=== PATIENT | female | born 1945 | race Caucasian/White ===

== ENCOUNTER → 2016-05-14 | Outpatient (CLI) | payer MEDICARE ==
--- NOTE | 2016-05-15 07:53 | MM ---
Reason for exam: screening (asymptomatic). Last mammogram was performed 1 year and 1 month ago. History: Patient is postmenopausal, has history of other cancer at age 62, and has history of endometrial cancer at age 54. Family history of breast cancer in maternal aunt. Benign cyst aspiration of the left breast. Physical Findings: A clinical breast exam by your physician is recommended on an annual basis and results should be correlated with mammographic findings. MG 3D Screening Mammo W/Cad Bilateral CC and MLO view(s) were taken. Prior study comparison: April 08, 2015, bilateral MG 3d screening mammo w/cad. January 29, 2014, bilateral MG screening mammo w CAD. There are scattered fibroglandular densities. There is no discrete abnormality. No significant changes when compared with prior studies. ASSESSMENT: Negative, BI-RAD 1 RECOMMENDATION: Routine screening mammogram of both breasts in 1 year.
== END | disposition home or self-care (01) ==
LOC: RADMAMWWP 11:29
PROVIDERS: ATTEND Obstetrics & Gynecology
DX: Z12.31 Encounter for screening mammogram for malignant neoplasm of breast (principal); Z80.3 Family history of malignant neoplasm of breast
CPT/HCPCS: 77063; G0202

== ENCOUNTER → 2017-02-04 | Outpatient (CLI) | payer MEDICARE ==
--- NOTE | 2017-02-04 11:10 | US ---
EXAMINATION TYPE: US gallbladder DATE OF EXAM: 02/04/2017 COMPARISON: NONE CLINICAL HISTORY: 71-year-old female R10.11 RT UPPER QUADRANT PAIN. Occasional RUQ pain x 1 year, jessica medrano, [employer] SAL[employer] ASSIST[employer] NOTES: obese patient FINDINGS: EXAM MEASUREMENTS: Liver Length: 13.6 cm Gallbladder Wall: 0.2 cm CBD: 6.1 mm Right Kidney: 10.0 x 4.7 x 4.7 cm Pancreas: visualized portions wnl, head and tail limited by overlying midline bowel gas Liver: somewhat heterogeneous appearance which may be on a technical basis. There is a 2.2 cm cyst i n the right lobe Gallbladder: wnl Evidence for sonographic De Leon's sign: no CBD: borderline dilated. Right Kidney: No hydronephrosis IMPRESSION: 1. Slight heterogeneity of the liver may be on a technical basis. Correlate to exclude nonspecific he patocellular disease. 2. Borderline diameter of the bile duct still falls within normal limits for patient's age. 3. No cholelithiasis or evidence for acute cholecystitis.
== END ==
LOC: RADUSWWP 08:52
PROVIDERS: ATTEND Family Medicine
DX: R10.11 Right upper quadrant pain (principal)
CPT/HCPCS: 76705

== ENCOUNTER 2017-05-15 19:03 | Emergency (ER) | payer OTHER, MEDICARE ==
[2017-05-15 19:16] VITALS: TEMP 98
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
[2017-05-15 21:50] VITALS: RESP 18
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
[2017-05-15 23:07] VITALS: BP 149/68; PULSE 74
== END 2017-05-15 23:08 | disposition home or self-care (01) ==
LOC: EC 19:03
DX: S16.1XXA Strain of muscle, fascia and tendon at neck level, initial encounter (principal); I10 Essential (primary) hypertension; M43.12 Spondylolisthesis, cervical region; G31.89 Other specified degenerative diseases of nervous system; G47.30 Sleep apnea, unspecified; Z99.89 Dependence on other enabling machines and devices; Z85.850 Personal history of malignant neoplasm of thyroid; Z85.42 Personal history of malignant neoplasm of other parts of uterus; Z86.73 Personal history of transient ischemic attack (TIA), and cerebral infarction without residual deficits; Z79.82 Long term (current) use of aspirin; Z79.899 Other long term (current) drug therapy; Z88.0 Allergy status to penicillin; Z88.6 Allergy status to analgesic agent; Z88.5 Allergy status to narcotic agent; Z88.8 Allergy status to other drugs, medicaments and biological substances; Z88.1 Allergy status to other antibiotic agents; Z88.2 Allergy status to sulfonamides; Z98.890 Other specified postprocedural states; V43.92XA Unspecified car occupant injured in collision with other type car in traffic accident, initial encounter; Y92.410 Unspecified street and highway as the place of occurrence of the external cause
CPT/HCPCS: 72050; 72125; 99284

== ENCOUNTER → 2017-09-28 | Outpatient (CLI) | payer MEDICARE ==
--- NOTE | 2017-09-30 10:25 | MM ---
Reason for exam: screening (asymptomatic). Last mammogram was performed 1 year and 4 months ago. History: Patient is postmenopausal, has history of other cancer at age 62, and has history of endometrial cancer at age 54. Family history of breast cancer in maternal aunt. Benign cyst aspiration of the left breast. Physical Findings: A clinical breast exam by your physician is recommended on an annual basis and results should be correlated with mammographic findings. MG 3D Screening Mammo W/Cad Bilateral CC and MLO view(s) were taken. Prior study comparison: May 14, 2016, bilateral MG 3d screening mammo w/cad. April 08, 2015, bilateral MG 3d screening mammo w/cad. There are scattered fibroglandular densities. There is chronic nodularity in the left breast. Axillary tail lymph node. No significant changes when compared with prior studies. ASSESSMENT: Negative, BI-RAD 1 RECOMMENDATION: Routine screening mammogram of both breasts in 1 year.
== END | disposition home or self-care (01) ==
LOC: RADMAMWWP 16:47
PROVIDERS: ATTEND Obstetrics & Gynecology
DX: Z12.31 Encounter for screening mammogram for malignant neoplasm of breast (principal)
CPT/HCPCS: 77063; 77067

== ENCOUNTER 2017-12-18 13:44 | Emergency (ER) | payer MEDICARE ==
[2017-12-18 14:02] VITALS: RESP 18; TEMP 97.9
--- NOTE | 2017-12-18 14:36 | ED ---
General Adult HPI - General Chief complaint: Neck Pain/Injury Stated complaint: neck/jaw pain Time Seen by Provider: 12/18/17 14:15 Source: patient, RN notes reviewed, old records reviewed Mode of arrival: ambulatory Limitations: no limitations - History of Present Illness Initial comments: 72-year-old female history of A. fib, and remote history of TIA presenting for evaluation of left-sided neck pain and jaw pain. Patient has had symptoms for several weeks. She developed bilateral jaw pain proximally 3 hours prior to arrival which is similar to the pain she has been experiencing over the past several weeks. She has no known history of CAD, she was concerned that this may be cardiac related. No dyspnea, no chest pain, no abdominal pain. No focal numbness or weakness. - Related Data Home Medications Medication Instructions Recorded Confirmed Levothyroxine Sodium [Synthroid] 137 mcg PO DAILY 08/20/13 12/18/17 Aspirin 325 mg PO DAILY 09/13/14 12/18/17 Cholecalciferol [Vitamin D3] 1,000 unit PO HS 09/13/14 12/18/17 Multivitamins, Thera [Theragran] 1 each PO HS 09/13/14 12/18/17 Ramipril 10 mg PO DAILY 09/13/14 12/18/17 Acetaminophen Tab [Tylenol Tab] 500 mg PO Q6H 12/18/17 12/18/17 Artificial Tears-Hypromellose 1 drop BOTH EYES BID 12/18/17 12/18/17 [Artificial Tear Drops] Diltiazem HCl [Diltiazem ER] 360 mg PO DAILY 12/18/17 12/18/17 Folic Acid 1 mg PO DAILY 12/18/17 12/18/17 Thiamine [Vitamin B-1] 100 mg PO HS 12/18/17 12/18/17 Allergies Allergy/AdvReac Type Severity Reaction Status Date / Time amoxicillin trihydrate Allergy Rash/Hives Verified 12/18/17 15:41 [From Trimox] aspirin [From Aggrenox] Allergy Unknown Verified 12/18/17 15:41 codeine phosphate Allergy Unknown Verified 12/18/17 15:41 [From Tylenol-Codeine #3] dipyridamole [From Aggrenox] Allergy Unknown Verified 12/18/17 15:41 levofloxacin Allergy Rapid Verified 12/18/17 15:41 Heart Rate, SEVERE DIARRHEA liothyronine sodium Allergy Unknown Verified 12/18/17 15:41 [From Cytomel] Sulfa (Sulfonamide Allergy Rapid Verified 12/18/17 15:41 Antibiotics) Heart Rate acetaminophen AdvReac Confusion Verified 12/18/17 15:41 [From Darvocet-N 100] ciprofloxacin [From Cipro] AdvReac Diarrhea Verified 12/18/17 15:41 propoxyphene napsylate AdvReac Confusion Verified 12/18/17 15:41 [From Darvocet-N 100] Review of Systems ROS Statement: Those systems with pertinent positive or pertinent negative responses have been documented in the HPI. ROS Other: All systems not noted in ROS Statement are negative. Past Medical History Past Medical History: Cancer, CVA/TIA, GERD/Reflux, Hyperlipidemia, Hypertension , Skin Disorder, Sleep Apnea/CPAP/BIPAP, Thyroid Disorder Additional Past Medical History / Comment(s): HX ARRYTHMIA. MINI STROKE X2, 2013. HX CA THYROID & UTERINE. History of Any Multi-Drug Resistant Organisms: None Reported Past Surgical History: Appendectomy, Cardiac Ablation, Hysterectomy, Joint Replacement, Orthopedic Surgery Additional Past Surgical History / Comment(s): THYROIDECTOMY, OVARIAN SURGERY; BILAT SHANDA AND TKA Past Anesthesia/Blood Transfusion Reactions: No Reported Reaction Past Psychological History: No Psychological Hx Reported Smoking Status: Never smoker Past Alcohol Use History: None Reported Past Drug Use History: None Reported - Past Family History Father Family Medical History: Cancer Additional Family Medical History / Comment(s): POSS DVT Son(s) Family Medical History: Cancer General Exam Limitations: no limitations General appearance: alert, in no apparent distress Head exam: Present: atraumatic, normocephalic Eye exam: Present: normal appearance, PERRL ENT exam: Present: normal exam Neck exam: Present: normal inspection, full ROM, other (No bruit). Absent: tenderness, meningismus, lymphadenopathy Respiratory exam: Present: normal lung sounds bilaterally. Absent: respiratory distress, wheezes Cardiovascular Exam: Present: regular rate, normal rhythm GI/Abdominal exam: Present: soft. Absent: distended, tenderness Extremities exam: Present: normal inspection Neurological exam: Present: alert, oriented X3, CN II-XII intact. Absent: motor sensory deficit Psychiatric exam: Present: normal affect, normal mood Skin exam: Present: warm, dry, intact. Absent: cyanosis, diaphoretic Course Vital Signs 12/18/17 13:58 Temperature 97.9 F Pulse Rate 79 Respiratory 18 Rate Blood Pressure 167/79 O2 Sat by Pulse 97 Oximetry EKG Findings - EKG Comments: EKG Findings:: EKG: Sinus rhythm with first-degree AV block, rate of 79, UT interval 230, QRS duration 86, QTC 431, no ST segment elevation, T waves are upright, no signs of acute ischemia Medical Decision Making - Medical Decision Making 72-year-old female presents with intermittent jaw pain and neck pain. Patient was concerned that this may be an anginal equivalent. On exam patient is well- appearing, stable vitals, there is no rash or palpable tenderness in the jaw or neck. Patient has no carotid bruits. She has normal household personal assistant strength in the bilateral upper tremors, normal pulse exam, EKG is obtained, this is sinus rhythm, no ischemic changes, she does receive laboratory testing including CBC, CMP and troponin which is all negative and within normal limits. Chest x-ray shows no acute cardiopulmonary disease. Patient is reassured. She does have an appointment with her vascular surgeon for a carotid ultrasound which she will maintain within the next 3 weeks. She will also inform her primary care of these symptoms. Return with worsening or changing symptoms. - Lab Data Result diagrams: 12/18/17 14:40 12/18/17 14:40 Lab Results 12/18/17 12/18/17 12/18/17 Range/Units 14:40 14:40 14:40 WBC 6.6 (3.8-10.6) k/uL RBC 4.86 (3.80-5.40) m/uL Hgb 13.8 (11.4-16.0) gm/dL Hct 42.5 (34.0-46.0) % MCV 87.5 (80.0-100.0) fL MCH 28.5 (25.0-35.0) pg MCHC 32.5 (31.0-37.0) g/dL RDW 14.0 (11.5-15.5) % Plt Count 203 (150-450) k/uL Neutrophils % 76 % Lymphocytes % 15 % Monocytes % 5 % Eosinophils % 2 % Basophils % 0 % Neutrophils # 5.0 (1.3-7.7) k/uL Lymphocytes # 1.0 (1.0-4.8) k/uL Monocytes # 0.3 (0-1.0) k/uL Eosinophils # 0.1 (0-0.7) k/uL Basophils # 0.0 (0-0.2) k/uL PT (9.0-12.0) sec INR (<1.2) APTT (22.0-30.0) sec Sodium 140 (137-145) mmol/L Potassium 4.1 (3.5-5.1) mmol/L Chloride 104 (98-107) mmol/L Carbon Dioxide 25 (22-30) mmol/L Anion Gap 11 mmol/L BUN 19 H (7-17) mg/dL Creatinine 0.58 (0.52-1.04) mg/dL Est GFR (CKD-EPI)AfAm >90 (>60 ml/min/1.73 sqM) Est GFR (CKD-EPI)NonAf >90 (>60 ml/min/1.73 sqM) Glucose 105 H (74-99) mg/dL Calcium 9.2 (8.4-10.2) mg/dL Magnesium 2.0 (1.6-2.3) mg/dL Total Bilirubin 0.4 (0.2-1.3) mg/dL AST 22 (14-36) U/L ALT 37 (9-52) U/L Alkaline Phosphatase 144 H (38-126) U/L Total Creatine Kinase 55 (30-135) U/L CK-MB (CK-2) 1.7 (0.0-2.4) ng/mL CK-MB (CK-2) Rel Index 3.1 Troponin I <0.012 (0.000-0.034) ng/mL Total Protein 7.4 (6.3-8.2) g/dL Albumin 4.2 (3.5-5.0) g/dL 12/18/17 Range/Units 14:40 WBC (3.8-10.6) k/uL RBC (3.80-5.40) m/uL Hgb (11.4-16.0) gm/dL Hct (34.0-46.0) % MCV (80.0-100.0) fL MCH (25.0-35.0) pg MCHC (31.0-37.0) g/dL RDW (11.5-15.5) % Plt Count (150-450) k/uL Neutrophils % % Lymphocytes % % Monocytes % % Eosinophils % % Basophils % % Neutrophils # (1.3-7.7) k/uL Lymphocytes # (1.0-4.8) k/uL Monocytes # (0-1.0) k/uL Eosinophils # (0-0.7) k/uL Basophils # (0-0.2) k/uL PT 10.1 (9.0-12.0) sec INR 1.0 (<1.2) APTT 25.1 (22.0-30.0) sec Sodium (137-145) mmol/L Potassium (3.5-5.1) mmol/L Chloride (98-107) mmol/L Carbon Dioxide (22-30) mmol/L Anion Gap mmol/L BUN (7-17) mg/dL Creatinine (0.52-1.04) mg/dL Est GFR (CKD-EPI)AfAm (>60 ml/min/1.73 sqM) Est GFR (CKD-EPI)NonAf (>60 ml/min/1.73 sqM) Glucose (74-99) mg/dL Calcium (8.4-10.2) mg/dL Magnesium (1.6-2.3) mg/dL Total Bilirubin (0.2-1.3) mg/dL AST (14-36) U/L ALT (9-52) U/L Alkaline Phosphatase (38-126) U/L Total Creatine Kinase (30-135) U/L CK-MB (CK-2) (0.0-2.4) ng/mL CK-MB (CK-2) Rel Index Troponin I (0.000-0.034) ng/mL Total Protein (6.3-8.2) g/dL Albumin (3.5-5.0) g/dL Disposition Clinical Impression: Jaw pain Disposition: HOME SELF-CARE Is patient prescribed a controlled substance at d/c from ED?: No Referrals: Jamil Bearden DO [Primary Care Provider] - 1-2 days Time of Disposition: 15:50
[2017-12-18 14:50] LABS: Basophils % (A) 0 %; Eosinophils # (A) 0.1 k/uL (0-0.7); Eosinophils % (A) 2 %; HCT 42.5 % (34.0-46.0); HGB 13.8 gm/dL (11.4-16.0); Lymphocytes % (A) 15 %; MCH 28.5 pg (25.0-35.0); MCHC 32.5 g/dL (31.0-37.0); MCV 87.5 fL (80.0-100.0); Monocytes # (A) 0.3 k/uL (0-1.0); Monocytes % (A) 5 %; Neutrophils % (A) 76 %; Platelet Count 203 k/uL (150-450); RBC 4.86 m/uL (3.80-5.40); WBC 6.6 k/uL (3.8-10.6)
[2017-12-18 15:00] LABS: Partial Thromboplastin Time 25.1 sec (22.0-30.0); Prothrombin Time 10.1 sec (9.0-12.0)
[2017-12-18 15:06] LABS: ALT 37 U/L (9-52); AST 22 U/L (14-36); Albumin 4.2 g/dL (3.5-5.0); Alkaline Phosphatase 144 U/L (38-126); Anion Gap 11 mmol/L; Blood Urea Nitrogen 19 mg/dL (7-17); Calcium 9.2 mg/dL (8.4-10.2); Carbon Dioxide 25 mmol/L (22-30); Chloride 104 mmol/L (98-107); Glucose 105 mg/dL (74-99); Potassium 4.1 mmol/L (3.5-5.1); Sodium 140 mmol/L (137-145); Total Bilirubin 0.4 mg/dL (0.2-1.3); Total Protein 7.4 g/dL (6.3-8.2)
[2017-12-18 15:10] LABS: Creatine Kinase 55 U/L (30-135)
[2017-12-18 15:23] LABS: Creatine Kinase MB 1.7 ng/mL (0.0-2.4); Troponin I <0.012 ng/mL (0.000-0.034)
--- NOTE | 2017-12-18 15:27 | XR ---
EXAMINATION TYPE: XR chest 2V DATE OF EXAM: 12/18/2017 COMPARISON: Chest x-ray April 10, 2012. HISTORY: Chest pain per order. Pain radiates to left jaw per patient. TECHNIQUE: Frontal and lateral views of the chest are obtained. FINDINGS: There is no focal air space opacity, pleural effusion, or pneumothorax seen. The cardiac silhouette size is stable and upper limits of normal. The osseous structures are intact. IMPRESSION: No acute process. No significant change from prior.
[2017-12-18 16:08] VITALS: BP 101/76; PULSE 66
== END 2017-12-18 16:08 | disposition home or self-care (01) ==
LOC: EC 13:44
DX: R68.84 Jaw pain (principal); M54.2 Cervicalgia; I48.91 Unspecified atrial fibrillation; I10 Essential (primary) hypertension; G47.30 Sleep apnea, unspecified; Z99.89 Dependence on other enabling machines and devices; Z85.850 Personal history of malignant neoplasm of thyroid; Z85.42 Personal history of malignant neoplasm of other parts of uterus; Z86.73 Personal history of transient ischemic attack (TIA), and cerebral infarction without residual deficits; Z96.653 Presence of artificial knee joint, bilateral; Z79.82 Long term (current) use of aspirin; Z79.899 Other long term (current) drug therapy; Z88.0 Allergy status to penicillin; Z88.6 Allergy status to analgesic agent; Z88.5 Allergy status to narcotic agent; Z88.8 Allergy status to other drugs, medicaments and biological substances; Z88.2 Allergy status to sulfonamides
CPT/HCPCS: 36415; 71046; 80053; 82550; 82553; 83735; 84484; 85025; 85610; 85730; 93005; 99284

== ENCOUNTER → 2018-03-15 | Outpatient (CLI) | payer MEDICARE ==
--- NOTE | 2018-03-15 12:13 | XR ---
EXAMINATION TYPE: XR cervical spine comp DATE OF EXAM: 03/15/2018 COMPARISON: 05/15/2017 HISTORY: Cervicalgia TECHNIQUE: Cervical spine is examined in 5 years. FINDINGS: Facet degenerative changes are noted in the frontal projection. C5-6 C6-7 mild to moderate foraminal narrowing is present on the right. Mild C4-5 C5-6 C6-7 foraminal narrowing due to uncoverte bral joint degenerative changes are noted. Prevertebral space appears normal. Small anterior vertebra l body spurs are noted C5-C6 and C7 There is persistent grade 1 spondylolisthesis of C4 anteriorly on C5 estimated 0.5 cm and C5 anterior ly on C6 measuring 0.4 cm. And 0.4 cm of C7 anterior and T1. There is partial obscuration of the odontoid from incisors and maxilla. IMPRESSION: 1. Grade 1 spondylolisthesis of C4 on C5, C5 on C6, and C7 on T1. 2. Uncovertebral the jugular vein to foraminal narrowing discussed above. 3. Exam appears stable from comparison.
== END | disposition home or self-care (01) ==
LOC: RADXRMAIN 11:21
PROVIDERS: ATTEND Physician Assistant
DX: M99.71 Connective tissue and disc stenosis of intervertebral foramina of cervical region (principal); M43.13 Spondylolisthesis, cervicothoracic region
CPT/HCPCS: 72050

== ENCOUNTER → 2018-10-11 | Outpatient (CLI) | payer MEDICARE ==
--- NOTE | 2018-10-12 11:58 | MM ---
Reason for exam: screening (asymptomatic). Last mammogram was performed 1 year ago. History: Patient is postmenopausal, has history of other cancer at age 62, and has history of endometrial cancer at age 54. Family history of breast cancer in maternal aunt. Benign cyst aspiration of the left breast. Physical Findings: A clinical breast exam by your physician is recommended on an annual basis and results should be correlated with mammographic findings. MG 3D Screening Mammo W/Cad Bilateral CC and MLO view(s) were taken. Prior study comparison: September 28, 2017, bilateral MG 3d screening mammo w/cad. May 14, 2016, bilateral MG 3d screening mammo w/cad. There are scattered fibroglandular densities. No suspicious abnormality. No significant changes when compared with prior studies. ASSESSMENT: Negative, BI-RAD 1 RECOMMENDATION: Routine screening mammogram of both breasts in 1 year.
== END | disposition home or self-care (01) ==
LOC: RADMAMWWP 10:50
PROVIDERS: ATTEND Obstetrics & Gynecology
DX: Z12.31 Encounter for screening mammogram for malignant neoplasm of breast (principal)
CPT/HCPCS: 77063; 77067

== ENCOUNTER → 2019-10-24 | Outpatient (CLI) | payer MEDICARE ==
--- NOTE | 2019-10-25 09:55 | MM ---
Reason for exam: screening (asymptomatic). Last mammogram was performed 1 year ago. History: Patient is postmenopausal, has history of other cancer at age 62, and has history of endometrial cancer at age 54. Family history of breast cancer in maternal aunt. Benign cyst aspiration of the left breast. Physical Findings: A clinical breast exam by your physician is recommended on an annual basis and results should be correlated with mammographic findings. MG 3D Screening Mammo W/Cad Bilateral CC and MLO view(s) were taken. Prior study comparison: October 11, 2018, bilateral MG 3d screening mammo w/cad. September 28, 2017, bilateral MG 3d screening mammo w/cad. The breast tissue is heterogeneously dense. This may lower the sensitivity of mammography. There is no discrete abnormality. No significant changes when compared with prior studies. ASSESSMENT: Negative, BI-RAD 1 RECOMMENDATION: Routine screening mammogram of both breasts in 1 year.
== END | disposition home or self-care (01) ==
LOC: RADMAMWWP 12:16
PROVIDERS: ATTEND Obstetrics & Gynecology
DX: Z12.31 Encounter for screening mammogram for malignant neoplasm of breast (principal)
CPT/HCPCS: 77063; 77067

== ENCOUNTER 2019-11-15 09:17 | Day surgery (SDC) | payer MEDICARE ==
[2019-11-14 08:47] VITALS: BMI 32.1
[~2019-11-15 09:17] MED LIST: LACTATED RINGERS 1,000 ML IV SCH
[2019-11-15] MEDS ORDERED: LIDOCAINE 1% (10MG/ML) FOR IV START INTRADERMA ONE (09:59)
[2019-11-15 10:00] VITALS: TEMP 98.3
[2019-11-15] MEDS ORDERED: PROPOFOL 10 MG/ML 20 ML VIAL IV ONE (11:08)
[2019-11-15] MEDS ORDERED: LIDOCAINE 1% INJ 10MG/ML (20 ML MDV) ONE (11:08)
--- NOTE | 2019-11-15 11:28 | P.PCN ---
Date of Procedure: 11/15/19 Procedure(s) Performed: BRIEF HISTORY: Patient is a 74-year-old pleasant female scheduled for an elective colonoscopy as a part of evaluation of right-sided abdominal pain and change in bowel habits for the last few months duration. PROCEDURE PERFORMED: Colonoscopy. PREOPERATIVE DIAGNOSIS: Abdominal pain/change in bowel. IV sedation per Anesthesia. PROCEDURE: After informed consent was obtained, the patient, was brought into the endoscopy unit. IV sedation was administered by Anesthesia under continuous monitoring. Digital rectal examination was normal. Initially the Olympus CF-160 flexible video colonoscope was then inserted in the rectum, gradually advanced into the cecum without any difficulty. Careful examination was performed as the scope was gradually being withdrawn. Ileocecal valve and the appendiceal orifice were visualized and appeared normal. Prep was excellent. Mucosa of the cecum, ascending colon, transverse colon, descending colon, sigmoid colon, and rectum appeared normal. Moderate left-sided diverticulosis. Retroflexion was performed in the rectum and no lesions were seen. The patient tolerated the procedure well. IMPRESSION: Normal-appearing colon from rectum to cecum with no evidence of colorectal neoplasia . Moderate left-sided diverticulosis RECOMMENDATIONS: Findings of this examination were discussed with the patient as well as a family. She was advised to be a high-fiber diet and take fiber supplements a regular basis..
[2019-11-15 12:03] VITALS: BP 143/70; PULSE 69; RESP 18
== END 2019-11-15 12:20 | disposition home or self-care (01) ==
LOC: ORWHC2ENDO 09:17
PROVIDERS: ATTEND Internal Medicine Gastroenterology
DX: K57.30 Diverticulosis of large intestine without perforation or abscess without bleeding (principal); Z79.82 Long term (current) use of aspirin; Z79.899 Other long term (current) drug therapy; Z88.6 Allergy status to analgesic agent; Z88.1 Allergy status to other antibiotic agents; Z88.5 Allergy status to narcotic agent; Z88.0 Allergy status to penicillin; Z88.2 Allergy status to sulfonamides; Z88.8 Allergy status to other drugs, medicaments and biological substances; I49.9 Cardiac arrhythmia, unspecified; I10 Essential (primary) hypertension; E78.5 Hyperlipidemia, unspecified; Z86.73 Personal history of transient ischemic attack (TIA), and cerebral infarction without residual deficits
CPT/HCPCS: 45378; J2001; J2704

== ENCOUNTER → 2019-11-21 | Outpatient (CLI) | payer MEDICARE ==
--- NOTE | 2019-11-21 10:01 | US ---
EXAMINATION TYPE: US abdomen complete DATE OF EXAM: 11/21/2019 COMPARISON: US 02/04/17 CLINICAL HISTORY: 74-year-old female R10.9 Abd pain. TECHNIQUE: Multiple sonographic images of the abdomen are obtained. FINDINGS: EXAM MEASUREMENTS: Liver Length: 14.5 cm Gallbladder Wall: 0.1 cm CBD: 0.4 cm Spleen: 9.6 cm Right Kidney: 10.7 x 4.4 x 4.2 cm Left Kidney: 12.3 x 4.4 x 4.3 cm Pancreas: wnl Liver: with a benign, mid hepatic cyst measuring 2.6 x 2.5 x 2.3 cm (versus 2.2 cm in 2017) Gallbladder: wnl, with tortuous neck. Evidence for sonographic De Leon's sign: No CBD: wnl Spleen: wnl Kidneys: No hydronephrosis. Upper IVC: wnl Abd Aorta: wnl IMPRESSION: 1. Benign hepatic cyst measuring 2.6 cm versus 2.2 cm in 2017. 2. No gallstones or biliary ductal dilatation.
== END | disposition home or self-care (01) ==
LOC: RADUSWWP 08:13
PROVIDERS: ATTEND Family Medicine
DX: K76.89 Other specified diseases of liver (principal)
CPT/HCPCS: 76700

== ENCOUNTER → 2020-10-09 | Outpatient (CLI) | payer MEDICARE ==
--- NOTE | 2020-10-14 13:41 | MM ---
Reason for exam: screening (asymptomatic). Last mammogram was performed 1 year ago. History: Patient is postmenopausal, has history of other cancer at age 62, and has history of endometrial cancer at age 54. Family history of breast cancer in maternal aunt. Benign cyst aspiration of the left breast. Took hormonal contraceptives for 2 years. Physical Findings: A clinical breast exam by your physician is recommended on an annual basis and results should be correlated with mammographic findings. MG 3D Screening Mammo W/Cad Bilateral CC and MLO view(s) were taken. Prior study comparison: October 24, 2019, bilateral MG 3d screening mammo w/cad. October 11, 2018, bilateral MG 3d screening mammo w/cad. There are scattered fibroglandular densities. There is no discrete abnormality. ASSESSMENT: Negative, BI-RAD 1 RECOMMENDATION: Routine screening mammogram of both breasts in 1 year.
== END | disposition home or self-care (01) ==
LOC: RADMAMWWP 07:16
PROVIDERS: ATTEND Obstetrics & Gynecology
DX: Z12.31 Encounter for screening mammogram for malignant neoplasm of breast (principal); Z78.0 Asymptomatic menopausal state; Z85.42 Personal history of malignant neoplasm of other parts of uterus; Z79.3 Long term (current) use of hormonal contraceptives; Z80.3 Family history of malignant neoplasm of breast
CPT/HCPCS: 77063; 77067

== ENCOUNTER 2021-01-22 10:29 | Day surgery (SDC) | payer MEDICARE ==
[2021-01-21 09:22] VITALS: BMI 30.1
[~2021-01-22 10:29] MED LIST changes: +LIDOCAINE 1% (10MG/ML) FOR IV START INTRADERMA PRN
[2021-01-22 10:51] VITALS: RESP 16; TEMP 98
[2021-01-22] MEDS ORDERED: PROPOFOL 10 MG/ML 20 ML VIAL IV ONE (12:23)
--- NOTE | 2021-01-22 12:51 | P.PCN ---
Date of Procedure: 01/22/21 Procedure(s) Performed: Brief history: Patient is a pleasant 75-year-old white female scheduled for an elective upper endoscopy as well as colonoscopy as a part of evaluation of GERD/intermittent dysphagia to solids and lower abdominal pain with change in bowel habits for the last several months duration Procedure performed: Esophagogastroduodenoscopy with dilation Colonoscopy with biopsy Preoperative diagnosis: GERD/dysphagia Lower abdominal pain and change in bowel habits [place] [facility]: After informed consent was obtained from the patient was brought into the endoscopy unit and IV sedation was administered by anesthesia under continuous monitoring. Initially upper endoscopy was done. The Olympus GF 160 video endoscope was inserted inserted into the mouth and esophagus intubated without any difficulty and was gradually advanced into the stomach and duodenum and carefully examined. The bulb and second part of the duodenum appeared normal. The scope was then withdrawn into the stomach adequately insufflated with air and upon careful examination the antrum and body, cardia and fundus appeared normal. The scope was then withdrawn into the esophagus. The GE junction was located at 36 cm to the incisors. A hiatal hernia noted. There was a distal esophageal Schatzki's ring identified and this was dilated using 15-18 mm TTS balloon in a sequential fashion for 90 seconds. The GE junction appeared regular with no erythema erosions or ulcerations. Rest of the esophagus appeared normal. Patient tolerated the procedure well. At this time the patient continued to remain sedation. Initial digital rectal examination was normal. Olympus CF 160 video colonoscope was then inserted into the rectum and gradually advanced to the cecum without any difficulty. Careful examination was performed as the scope was gradually being withdrawn. The prep was excellent. The cecum, appeared normal. Ascending colon there was a 3-4 mm polyp that was removed by cold biopsy. Rest of the ascending colon, transverse colon, descending colon, sigmoid colon and rectum appeared normal. Retroflexion was performed in the rectum and no lesions were noted. Scattered left sided diverticulosis. Patient tolerated the procedure well. Impression: 1. Upper endoscopy revealed distal esophageal Schatzki's ring status post balloon dilation using 10-18 mm TTS balloon as described above and small hiatal hernia 2. Colonoscopy revealed 3-4 mm ascending colon polyp status post biopsy and scattered left-sided diverticulosis. Recommendations: Findings of this examination were discussed with the patient as well as her family. She was advised to be on a clear liquid diet today. She was advised to follow with the biopsy results and if the biopsy result adenoma she can have a repeat colonoscopy in 5 years
[2021-01-22 13:14] VITALS: BP 135/69; PULSE 87
== END 2021-01-22 13:45 | disposition home or self-care (01) ==
LOC: ORWHC2ENDO 10:29
PROVIDERS: ATTEND Internal Medicine Gastroenterology
DX: D12.2 Benign neoplasm of ascending colon (principal); K22.2 Esophageal obstruction; K44.9 Diaphragmatic hernia without obstruction or gangrene; K57.30 Diverticulosis of large intestine without perforation or abscess without bleeding; K21.9 Gastro-esophageal reflux disease without esophagitis; Z79.899 Other long term (current) drug therapy; I10 Essential (primary) hypertension; G47.33 Obstructive sleep apnea (adult) (pediatric); Z85.850 Personal history of malignant neoplasm of thyroid; Z85.42 Personal history of malignant neoplasm of other parts of uterus; Z86.73 Personal history of transient ischemic attack (TIA), and cerebral infarction without residual deficits; Z96.643 Presence of artificial hip joint, bilateral; E89.0 Postprocedural hypothyroidism; Z96.653 Presence of artificial knee joint, bilateral; Z79.890 Hormone replacement therapy; Z90.710 Acquired absence of both cervix and uterus; Z90.49 Acquired absence of other specified parts of digestive tract; Z88.1 Allergy status to other antibiotic agents; Z88.5 Allergy status to narcotic agent; Z88.0 Allergy status to penicillin; Z88.8 Allergy status to other drugs, medicaments and biological substances
CPT/HCPCS: 88305; 45380; 43249; J2704; C1726

== ENCOUNTER → 2021-12-17 | Outpatient (CLI) | payer MEDICARE ==
--- NOTE | 2021-12-18 08:28 | MM ---
Reason for Exam: Screening (asymptomatic). Last mammogram was performed 1 year(s) and 2 month(s) ago. Patient History: Menarche at age 9. First Full-Term at age 21. Left ovary removed at age 54. Right ovary removed at age 21. Hysterectomy at age 54. Postmenopausal. Other cancer, age 62. Endometrial cancer, age 54. Patient used Hormonal Contraceptives for 2 years. Benign Cyst Aspiration on the left side. Maternal aunt had breast cancer. Risk Values: Isabella 5 year model risk: 1.7%. NCI Lifetime model risk: 3.0%. Prior Study Comparison: 10/11/2018 Bilateral Screening Mammogram, [facility]. 10/24/2019 Bilateral Screening Mammogram, [facility]. 10/09/2020 Bilateral Screening Mammogram, [facility]. Tissue Density: There are scattered fibroglandular densities. Findings: Analyzed By CAD. There is no suspicious group of microcalcifications or new suspicious mass in either breast. Chronic nodularity within both breasts. No significant change from prior exams. Overall Assessment: Benign, BI-RAD 2 Management: Screening Mammogram of both breasts in 1 year. A clinical breast exam by your physician is recommended on an annual basis and results should be correlated with mammographic findings. Electronically signed and approved by: Owen Simmons D.O.
== END | disposition home or self-care (01) ==
LOC: RADMAMWWP 10:23
PROVIDERS: ATTEND Obstetrics & Gynecology
DX: Z12.31 Encounter for screening mammogram for malignant neoplasm of breast (principal); Z80.3 Family history of malignant neoplasm of breast; Z78.0 Asymptomatic menopausal state
CPT/HCPCS: 77063; 77067

== ENCOUNTER 2022-07-02 15:19 | Emergency (ER) | payer MEDICARE ==
--- NOTE | 2022-07-02 16:19 | ED ---
General Adult HPI - General Chief complaint: Neuro Symptoms/Deficit Stated complaint: TIA Time Seen by Provider: 07/02/22 15:27 Source: patient, family Mode of arrival: wheelchair Limitations: no limitations - History of Present Illness Initial comments: Dictation was produced using [employer] dictation software. please excuse any grammatical, word or spelling errors. Chief Complaint: 77-year-old female with alleged history of TIA presents to emergency room for bout of dizziness History of Present Illness: 77-year-old female she is accompanied by her son. Patient today at around after lunchtime had episode of dizziness. She also feels like she has stuffiness in her face. Patient states she was diagnosed with a TIA in the past after being value by several physicians. States that her TIAs from before not associated with extremity weakness, confusion, slurred speech or dysarthria. States that her symptoms last for several minutes however resolved. Patient is relatively asymptomatic at this time. Denies sensation of the room spinning. The ROS documented in this emergency department record has been reviewed and confirmed by me. Those systems with pertinent positive or negative responses have been documented in the HPI. All other systems are other negative and/or noncontributory. - Related Data Home Medications Medication Instructions Recorded Confirmed Levothyroxine Sodium [Synthroid] 137 mcg PO DAILY 08/20/13 07/02/22 Multivitamins, Thera [Theragran] 1 tab PO HS 09/13/14 07/02/22 Ramipril 10 mg PO DAILY 09/13/14 07/02/22 Folic Acid 1 mg PO HS 12/18/17 07/02/22 Thiamine [Vitamin B-1] 100 mg PO HS 12/18/17 07/02/22 dilTIAZem HCL [Diltiazem ER] 360 mg PO HS 12/18/17 07/02/22 Calcium Carbonate [Calcium] 600 mg PO HS 01/21/21 07/02/22 Aspirin EC [Ecotrin Low Dose] 81 mg PO HS 07/02/22 07/02/22 Chlorthalidone [Hygroton] 25 mg PO HS 07/02/22 07/02/22 Tyro-3/Dha/Epa/Fish Oil [Fish Oil 1 cap PO HS 07/02/22 07/02/22 1,000 mg Softgel] hydrALAZINE HCL [Apresoline] 25 mg PO BID 07/02/22 07/02/22 Allergies Allergy/AdvReac Type Severity Reaction Status Date / Time amoxicillin trihydrate Allergy Rash/Hives Verified 07/02/22 16:37 [From Trimox] codeine phosphate Allergy Confusion Verified 07/02/22 16:37 [From Tylenol-Codeine #3] dipyridamole [From Aggrenox] Allergy Unknown Verified 07/02/22 16:37 levofloxacin Allergy Rapid Verified 07/02/22 16:37 Heart Rate, SEVERE DIARRHEA liothyronine sodium Allergy Unknown Verified 07/02/22 16:37 [From Cytomel] Sulfa (Sulfonamide Allergy Rapid Verified 07/02/22 16:37 Antibiotics) Heart Rate ciprofloxacin [From Cipro] AdvReac Diarrhea Verified 07/02/22 16:37 propoxyphene napsylate AdvReac Confusion Verified 07/02/22 16:37 [From Darvocet-N 100] Review of Systems ROS Statement: Those systems with pertinent positive or pertinent negative responses have been documented in the HPI. ROS Other: All systems not noted in ROS Statement are negative. Past Medical History Past Medical History: Cancer, CVA/TIA, GERD/Reflux, Hyperlipidemia, Hypertension, Skin Disorder, Sleep Apnea/CPAP/BIPAP, Thyroid Disorder Additional Past Medical History / Comment(s): HX ARRYTHMIA. MINI STROKE X 2, 2012. HX CA THYROID & UTERINE. USES CPAP MACHINE History of Any Multi-Drug Resistant Organisms: None Reported Past Surgical History: Appendectomy, Cardiac Ablation, Hysterectomy, Joint Replacement, Orthopedic Surgery Additional Past Surgical History / Comment(s): THYROIDECTOMY, OVARIAN SURGERY; BILATERAL TOTAL HIP SURGERY, BILATERAL TOTAL KNEES , COLONOSCOPY Past Anesthesia/Blood Transfusion Reactions: No Reported Reaction Past Psychological History: No Psychological Hx Reported Smoking Status: Never smoker - Past Family History Father Family Medical History: Cancer, Pulmonary Embolus Additional Family Medical History / Comment(s): POSS DVT Son(s) Family Medical History: Cancer General Exam - General Exam Comments Initial Comments: PHYSICAL EXAM: General Impression: Alert and oriented x3, not in acute distress HEENT: Normocephalic atraumatic, extra-ocular movements intact, pupils equal and reactive to light bilaterally, mucous membranes moist. Cardiovascular: Heart regular rate and rhythm Chest: Able to complete full sentences, no retractions, no tachypnea Abdomen: abdomen soft, non-tender, non-distended, no organomegaly Musculoskeletal: Pulses present and equal in all extremities, no peripheral edema Motor: no focal deficits noted Neurological: CN II-XII grossly intact, no focal motor or sensory deficits noted Skin: Intact with no visualized rashes Psych: Normal affect and mood Limitations: no limitations Course Vital Signs 07/02/22 15:22 Temperature 97.6 F Pulse Rate 93 Respiratory 18 Rate Blood Pressure 169/94 O2 Sat by Pulse 96 Oximetry Medical Decision Making - Medical Decision Making Was pt. sent in by a medical professional or institution (, PA, CUSTOMS COLLECTOR, urgent care, hospital, or [facility]...) When possible be specific @ -No Did you speak to anyone other than the patient for history (EMS, parent, family, police, friend...)? What history was obtained from this source @ -Some history was obtained from son who endorses patient's history of present illness Did you review nursing and triage notes (agree or disagree)? Why? @ -I reviewed and agree with nursing and triage notes Were old charts reviewed (outside hosp., previous admission, EMS record, old EKG, old radiological studies, urgent care reports/EKG's, [facility] records)? Report findings @ -No old charts were reviewed Differential Diagnosis (chest pain, altered mental status, abdominal pain women, abdominal pain men, vaginal bleeding, musculoskeletal, weakness, fever, dyspnea, syncope, headache, dizziness, GI bleed, back pain, seizure, CVA, palpatations, mental health)? @ -Differential Dizziness: Benign paroxysmal positional Vertigo, Menieres disease, otitis media, acoustic neuroma, vertebrobasilar insufficiency, cerebellar stroke, encephalitis, hypovolemic, arrhythmia, coronary artery syndrome, anemia, this is not meant to be an all-inclusive list EKG interpreted by me (3pts min.). @ -My EKG interpretation: Ventricular rate 80, sinus rhythm,. 03/10/2013, QRS 96, QTC 45. No HI prolongation, no QTC prolongation, no ST or T-wave changes noted. Overall, this EKG is unremarkable X-rays interpreted by me (1pt min.). @ -None done CT interpreted by me (1pt min.). @ -None done U/S interpreted by me (1pt. min.). @ -None done What testing was considered but not performed or refused? (CT, X-rays, U/S, labs)? Why? @ -None What meds were considered but not given or refused? Why? @ -None Did you discuss the management of the patient with other professionals (professionals i.e. , PA, CUSTOMS COLLECTOR, lab, RT, psych nurse, social director, technical applications scientist, teacher, classification officer, binder caser)? Give summary @ -No Was smoking cessation discussed for >3mins.? @ -No Was critical care preformed (if so, how long)? @ -No Were there social determinants of health that impacted care today? How? (Homelessness, low income, unemployed, alcoholism, drug addiction, transportation, low edu. Level, literacy, decrease access to med. care, [facility], rehab)? @ -No Was there de-escalation of care discussed even if they declined (Discuss DNR or withdrawal of care, Hospice)? DNR status @ -No What co-morbidities impacted this encounter? (DM, HTN, Smoking, COPD, CAD, Cancer, CVA, ARF, Chemo, Hep., AIDS, mental health diagnosis, sleep apnea, morbid obesity)? @ -None Was patient admitted / discharged? Hospital course, mention meds given and route, prescriptions, significant lab abnormalities, going to OR and other pertinent info. @ -77-year-old male presents emergency department for bout of dizziness. Patient has any history of cardiac disease. She is well-appearing states that her symptoms lasted briefly. Neurologic exam is unremarkable. Physical examination is completely benign she is well-appearing and asymptomatic. Denied a sensation of room spinning. Laboratory evaluation obtained. Patient's findings suspicious for mild dehydration. Patient told to follow-up with a primary care doctor. She is agreeable with discharge. Undiagnosed new problem with uncertain prognosis? @ -No Drug Therapy requiring intensive monitoring for toxicity (Heparin, Nitro, Insulin, Cardizem)? @ -No Were any procedures done? @ -No Diagnosis/symptom? Acute, or Chronic, or Acute on Chronic? Uncomplicated (without systemic symptoms) or Complicated (systemic symptoms)? @ -1. Acute uncomplicated dehydration Side effects of treatment? @ -No Exacerbation, Progression, or Severe Exacerbation? @ -No Poses a threat to life or bodily function? How? (Chest pain, [place], [place], pneumonia, PE, COPD, DKA, ARF, appy, cholecystitis, CVA, Diverticulitis, Homicidal, Caron cidal, threat to staff... and all critical care pts) @ -No - Lab Data Result diagrams: 07/02/22 16:00 07/02/22 16:00 Lab Results 07/02/22 07/02/22 07/02/22 Range/Units 16:00 16:00 16:00 WBC 7.2 (3.8-10.6) k/uL RBC 4.91 (3.80-5.40) m/uL Hgb 14.5 (11.4-16.0) gm/dL Hct 42.7 (34.0-46.0) % MCV 86.9 (80.0-100.0) fL MCH 29.5 (25.0-35.0) pg MCHC 33.9 (31.0-37.0) g/dL RDW 13.7 (11.5-15.5) % Plt Count 229 (150-450) k/uL MPV 7.7 Neutrophils % 69 % Lymphocytes % 19 % Monocytes % 7 % Eosinophils % 1 % Basophils % 0 % Neutrophils # 5.0 (1.3-7.7) k/uL Lymphocytes # 1.4 (1.0-4.8) k/uL Monocytes # 0.5 (0-1.0) k/uL Eosinophils # 0.1 (0-0.7) k/uL Basophils # 0.0 (0-0.2) k/uL Sodium 136 L (137-145) mmol/L Potassium 4.2 (3.5-5.1) mmol/L Chloride 95 L (98-107) mmol/L Carbon Dioxide 32 H (22-30) mmol/L Anion Gap 9 mmol/L BUN 25 H (7-17) mg/dL Creatinine 0.71 (0.52-1.04) mg/dL Est GFR (CKD-EPI)AfAm >90 (>60 ml/min/1.73 sqM) Est GFR (CKD-EPI)NonAf 82 (>60 ml/min/1.73 sqM) Glucose 107 H (74-99) mg/dL Plasma Lactic Acid Kendall 1.1 (0.7-2.0) mmol/L Calcium 9.2 (8.4-10.2) mg/dL Magnesium 1.9 (1.6-2.3) mg/dL Total Bilirubin 0.5 (0.2-1.3) mg/dL AST 26 (14-36) U/L ALT 23 (4-34) U/L Alkaline Phosphatase 144 H (38-126) U/L Troponin I (0.000-0.034) ng/mL Total Protein 8.0 (6.3-8.2) g/dL Albumin 4.6 (3.5-5.0) g/dL 07/02/22 Range/Units 16:00 WBC (3.8-10.6) k/uL RBC (3.80-5.40) m/uL Hgb (11.4-16.0) gm/dL Hct (34.0-46.0) % MCV (80.0-100.0) fL MCH (25.0-35.0) pg MCHC (31.0-37.0) g/dL RDW (11.5-15.5) % Plt Count (150-450) k/uL MPV Neutrophils % % Lymphocytes % % Monocytes % % Eosinophils % % Basophils % % Neutrophils # (1.3-7.7) k/uL Lymphocytes # (1.0-4.8) k/uL Monocytes # (0-1.0) k/uL Eosinophils # (0-0.7) k/uL Basophils # (0-0.2) k/uL Sodium (137-145) mmol/L Potassium (3.5-5.1) mmol/L Chloride (98-107) mmol/L Carbon Dioxide (22-30) mmol/L Anion Gap mmol/L BUN (7-17) mg/dL Creatinine (0.52-1.04) mg/dL Est GFR (CKD-EPI)AfAm (>60 ml/min/1.73 sqM) Est GFR (CKD-EPI)NonAf (>60 ml/min/1.73 sqM) Glucose (74-99) mg/dL Plasma Lactic Acid Kendall (0.7-2.0) mmol/L Calcium (8.4-10.2) mg/dL Magnesium (1.6-2.3) mg/dL Total Bilirubin (0.2-1.3) mg/dL AST (14-36) U/L ALT (4-34) U/L Alkaline Phosphatase (38-126) U/L Troponin I <0.012 (0.000-0.034) ng/mL Total Protein (6.3-8.2) g/dL Albumin (3.5-5.0) g/dL Disposition Clinical Impression: Dehydration Disposition: HOME SELF-CARE Condition: Good Instructions (If sedation given, give patient instructions): Dehydration (ED) Is patient prescribed a controlled substance at d/c from ED?: No Referrals: Jamil Bearden DO [Primary Care Provider] - 1-2 days Time of Disposition: 17:17
[2022-07-02 16:25] LABS: Basophils % (A) 0 %; Eosinophils # (A) 0.1 k/uL (0-0.7); Eosinophils % (A) 1 %; HCT 42.7 % (34.0-46.0); HGB 14.5 gm/dL (11.4-16.0); Lymphocytes # (A) 1.4 k/uL (1.0-4.8); Lymphocytes % (A) 19 %; MCH 29.5 pg (25.0-35.0); MCHC 33.9 g/dL (31.0-37.0); MCV 86.9 fL (80.0-100.0); Mean Platelet Volume 7.7; Monocytes # (A) 0.5 k/uL (0-1.0); Monocytes % (A) 7 %; Neutrophils % (A) 69 %; Platelet Count 229 k/uL (150-450); RBC 4.91 m/uL (3.80-5.40); RDW 13.7 % (11.5-15.5); WBC 7.2 k/uL (3.8-10.6)
[2022-07-02 16:37] LABS: ALT 23 U/L (4-34); AST 26 U/L (14-36); African American GFR (CKD) >90 (>60 ml/min/1.73 sqM); Albumin 4.6 g/dL (3.5-5.0); Alkaline Phosphatase 144 U/L (38-126); Anion Gap 9 mmol/L; Blood Urea Nitrogen 25 mg/dL (7-17); Calcium 9.2 mg/dL (8.4-10.2); Carbon Dioxide 32 mmol/L (22-30); Chloride 95 mmol/L (98-107); Glucose 107 mg/dL (74-99); Magnesium 1.9 mg/dL (1.6-2.3); Non-African American GFR(CKD) 82 (>60 ml/min/1.73 sqM); Potassium 4.2 mmol/L (3.5-5.1); Sodium 136 mmol/L (137-145); Total Bilirubin 0.5 mg/dL (0.2-1.3)
[2022-07-02] MEDS ORDERED: SODIUM CHLORIDE 0.9% 1,000 ML IV STA (16:52)
[2022-07-02 17:19] VITALS: BP 129/70; PULSE 76; RESP 16; TEMP 98.1
== END 2022-07-02 17:36 | disposition home or self-care (01) ==
LOC: EC 15:19
DX: E86.0 Dehydration (principal); I10 Essential (primary) hypertension; E07.9 Disorder of thyroid, unspecified; G47.30 Sleep apnea, unspecified; Z86.73 Personal history of transient ischemic attack (TIA), and cerebral infarction without residual deficits; Z79.890 Hormone replacement therapy; Z79.82 Long term (current) use of aspirin; Z79.899 Other long term (current) drug therapy; Z88.0 Allergy status to penicillin; Z88.5 Allergy status to narcotic agent; Z88.2 Allergy status to sulfonamides; Z88.8 Allergy status to other drugs, medicaments and biological substances; Z88.1 Allergy status to other antibiotic agents; Z88.6 Allergy status to analgesic agent
CPT/HCPCS: 36415; 80053; 83605; 83735; 84484; 85025; 99284

== ENCOUNTER 2022-12-09 11:32 | Emergency (ER) | payer MEDICARE ==
--- NOTE | 2022-12-09 13:18 | US ---
EXAMINATION TYPE: US venous doppler duplex LE LT DATE OF EXAM: 12/09/2022 1:03 PM COMPARISON: NONE CLINICAL INDICATION: Female, 77 years old with history of pain; left ankle pain and swelling, no h/o dvt, back pain, not on thinners SIDE PERFORMED: Left TECHNIQUE: The lower extremity deep venous system is examined utilizing real time linear array sonog opal with graded compression, doppler sonography and color-flow sonography. VESSELS IMAGED: Common Femoral Vein Deep Femoral Vein Greater Saphenous Vein * Femoral Vein Popliteal Vein Small Saphenous Vein * Proximal Calf Veins (* superficial vessels) Left Leg: Internal echoes seen within left peroneal veins and PTV's that did not compress IMPRESSION: 1. Deep vein thrombosis of the posterior tibial veins. 2. Superficial thrombophlebitis of the peroneal veins. Findings communicated to Dr. Sd Scott, PAC on 12/09/2022 1:[address] Richie Fay.
[2022-12-09] MEDS ORDERED: APIXABAN 5 MG TAB PO STA (13:22)
--- NOTE | 2022-12-09 13:39 | ED ---
Lower Extremity Injury HPI - General Chief Complaint: Extremity Injury, Lower Stated Complaint: Lt leg pain Time Seen by Provider: 12/09/22 12:09 Source: patient, RN notes reviewed Mode of arrival: ambulatory Limitations: no limitations - History of Present Illness Initial Comments: 77-year-old female sent emergency Department chief complaint of left leg pain. Patient states his mother for last few days. Patient concerned about possible DVT denies any chest pain or shortness of breath. Patient states that she has no history DVT. She states she does have some pain areas on her left leg and believes she may have just pulled a muscle. Denies any bowel, bladder incontinence or retention or saddle anesthesias. Denies any melanotic stools denies any dysuria or hematuria. - Related Data Home Medications Medication Instructions Recorded Confirmed Levothyroxine Sodium [Synthroid] 137 mcg PO DAILY 08/20/13 07/02/22 Multivitamins, Thera [Theragran] 1 tab PO HS 09/13/14 07/02/22 Ramipril 10 mg PO DAILY 09/13/14 07/02/22 Folic Acid 1 mg PO HS 12/18/17 07/02/22 Thiamine [Vitamin B-1] 100 mg PO HS 12/18/17 07/02/22 dilTIAZem HCL [Diltiazem ER] 360 mg PO HS 12/18/17 07/02/22 Calcium Carbonate [Calcium] 600 mg PO HS 01/21/21 07/02/22 Aspirin EC [Ecotrin Low Dose] 81 mg PO HS 07/02/22 07/02/22 Chlorthalidone [Hygroton] 25 mg PO HS 07/02/22 07/02/22 [place]-3/Dha/Epa/Fish Oil [Fish Oil 1 cap PO HS 07/02/22 07/02/22 1,000 mg Softgel] hydrALAZINE HCL [Apresoline] 25 mg PO BID 07/02/22 07/02/22 Previous Rx's Medication Instructions Recorded Apixaban [Eliquis Starter Pack 0 mg PO DIRECTED 30 Days #1 12/09/22 (for VTE)] packet Allergies Allergy/AdvReac Type Severity Reaction Status Date / Time amoxicillin trihydrate Allergy Rash/Hives Verified 12/09/22 11:48 [From Trimox] codeine phosphate Allergy Confusion Verified 12/09/22 11:48 [From Tylenol-Codeine #3] dipyridamole [From Aggrenox] Allergy Unknown Verified 12/09/22 11:48 levofloxacin Allergy Rapid Verified 12/09/22 11:48 Heart Rate, SEVERE DIARRHEA liothyronine sodium Allergy Unknown Verified 12/09/22 11:48 [From Cytomel] Sulfa (Sulfonamide Allergy Rapid Verified 12/09/22 11:48 Antibiotics) Heart Rate ciprofloxacin [From Cipro] AdvReac Diarrhea Verified 12/09/22 11:48 propoxyphene napsylate AdvReac Confusion Verified 12/09/22 11:48 [From Darvocet-N 100] Review of Systems ROS Statement: Those systems with pertinent positive or pertinent negative responses have been documented in the HPI. ROS Other: All systems not noted in ROS Statement are negative. Past Medical History Past Medical History: Cancer, CVA/TIA, GERD/Reflux, Hyperlipidemia, Hypertension, Skin Disorder, Sleep Apnea/CPAP/BIPAP, Thyroid Disorder Additional Past Medical History / Comment(s): HX ARRYTHMIA. MINI STROKE X 2, 2012. HX CA THYROID & UTERINE. USES CPAP MACHINE History of Any Multi-Drug Resistant Organisms: None Reported Past Surgical History: Appendectomy, Cardiac Ablation, Hysterectomy, Joint Replacement, Orthopedic Surgery Additional Past Surgical History / Comment(s): THYROIDECTOMY, OVARIAN SURGERY; BILATERAL TOTAL HIP SURGERY, BILATERAL TOTAL KNEES , COLONOSCOPY Past Anesthesia/Blood Transfusion Reactions: No Reported Reaction Past Psychological History: No Psychological Hx Reported Smoking Status: Never smoker - Past Family History Father Family Medical History: Cancer, Pulmonary Embolus Additional Family Medical History / Comment(s): POSS DVT Son(s) Family Medical History: Cancer General Exam Limitations: no limitations General appearance: alert, in no apparent distress Head exam: Present: atraumatic, normocephalic, normal inspection Eye exam: Present: normal appearance, PERRL, EOMI. Absent: scleral icterus, conjunctival injection, periorbital swelling ENT exam: Present: normal exam, normal oropharynx, mucous membranes moist Neck exam: Present: normal inspection, full ROM. Absent: tenderness, meningismus, lymphadenopathy Respiratory exam: Present: normal lung sounds bilaterally. Absent: respiratory distress, wheezes, rales, rhonchi, stridor Cardiovascular Exam: Present: regular rate, normal rhythm, normal heart sounds. Absent: systolic murmur, diastolic murmur, rubs, gallop, clicks GI/Abdominal exam: Present: soft, normal bowel sounds. Absent: distended, tenderness, guarding, rebound, rigid Extremities exam: Present: other (Pedal pulses equal bilaterally, neurovascular intact there is mild swelling, mild tenderness to left distal leg) Course Vital Signs 12/09/22 12/09/22 11:44 13:51 Temperature 98.0 F 97.9 F Pulse Rate 94 74 Respiratory 18 20 Rate Blood Pressure 147/84 148/78 O2 Sat by Pulse 96 98 Oximetry Medical Decision Making - Medical Decision Making Was pt. sent in by a medical professional or institution ([facility], [facility], urgent care, hospital, or jail...) When possible be specific @ -No Did you speak to anyone other than the patient for history (EMS, parent, family, police, friend...)? What history was obtained from this source @ -No Did you review nursing and triage notes (agree or disagree)? Why? @ -I reviewed and agree with nursing and triage notes Were old charts reviewed (outside hosp., previous admission, EMS record, old EKG, old radiological studies, urgent care reports/EKG's, jail records)? Report findings @ -No old charts were reviewed Differential Diagnosis (chest pain, altered mental status, abdominal pain women, abdominal pain men, vaginal bleeding, weakness, fever, dyspnea, syncope, headache, dizziness, GI bleed, back pain, seizure, CVA, palpatations, mental health, musculoskeletal)? @ -Sciatica, DVT, leg strengthening EKG interpreted by me (3pts min.). @ -None X-rays interpreted by me (1pt min.). @ -None done CT interpreted by me (1pt min.). @ -None done U/S interpreted by me (1pt. min.). @ -US is positive for acute DVT of left leg What testing was considered but not performed or refused? (CT, X-rays, U/S, labs)? Why? @ -None What meds were considered but not given or refused? Why? @ -None Did you discuss the management of the patient with other professionals (professionals i.e. [facility]ckay, [facility], lab, RT, psych nurse, social insurance analyst, academic affairs specialist, teacher, toxics program officer, case assistant)? Give summary @ -No Was smoking cessation discussed for >3mins.? @ -No Was critical care preformed (if so, how long)? @ -No Were there social determinants of health that impacted care today? How? (Homelessness, low income, unemployed, alcoholism, drug addiction, transportation, low edu. Level, literacy, decrease access to med. care, assisted, rehab)? @ -No Was there de-escalation of care discussed even if they declined (Discuss DNR or withdrawal of care, Hospice)? DNR status @ -No What co-morbidities impacted this encounter? (DM, HTN, Smoking, COPD, CAD, Cancer, CVA, ARF, Chemo, Hep., AIDS, mental health diagnosis, sleep apnea, morbid obesity)? @ -None Was patient admitted / discharged? Hospital course, mention meds given and route, prescriptions, significant lab abnormalities, going to OR and other pertinent info. @ -Discharge patient has evidence of a distal DVT patient has no chest pain or shortness of breath. Patient was given aliquots we discharged with one month of Eliquis. Undiagnosed new problem with uncertain prognosis? @ -No Drug Therapy requiring intensive monitoring for toxicity (Heparin, Nitro, Insulin, Cardizem)? @ -No Were any procedures done? @ -No Diagnosis/symptom? @ -[Left leg DVT Acute, or Chronic, or Acute on Chronic? @ -Acute Uncomplicated (without systemic symptoms) or Complicated (systemic symptoms)? @ -[Uncomplicated Side effects of treatment? @ -No Exacerbation, Progression, or Severe Exacerbation? @ -No Poses a threat to life or bodily function? How? (Chest pain, USA, IA, pneumonia, PE, COPD, DKA, ARF, appy, cholecystitis, CVA, Diverticulitis, Homicidal, Suicidal, threat to staff... and all critical care pts) @ -No Disposition Clinical Impression: Left leg DVT Disposition: HOME SELF-CARE Condition: Stable Instructions (If sedation given, give patient instructions): Apixaban (By mouth), Deep Vein Thrombosis (ED) Additional Instructions: Please return to the Emergency Department if symptoms worsen or any other concerns. Prescriptions: Apixaban [Eliquis Starter Pack (for VTE)] 0 mg PO DIRECTED 30 Days #1 packet Is patient prescribed a controlled substance at d/c from ED?: No Referrals: Jamil Bearden, [Primary Care Provider] - 1-2 days Time of Disposition: 13:38
[2022-12-09 13:57] VITALS: BP 148/78; PULSE 74; RESP 20; TEMP 97.9
== END 2022-12-09 13:55 | disposition home or self-care (01) ==
LOC: EC 11:32
DX: I82.452 Acute embolism and thrombosis of left peroneal vein (principal); I10 Essential (primary) hypertension; E78.5 Hyperlipidemia, unspecified; E03.9 Hypothyroidism, unspecified; K21.9 Gastro-esophageal reflux disease without esophagitis; Z79.899 Other long term (current) drug therapy; Z79.890 Hormone replacement therapy; Z79.82 Long term (current) use of aspirin; Z86.73 Personal history of transient ischemic attack (TIA), and cerebral infarction without residual deficits; Z88.1 Allergy status to other antibiotic agents; Z88.8 Allergy status to other drugs, medicaments and biological substances; Z88.2 Allergy status to sulfonamides; Z88.0 Allergy status to penicillin; Z88.5 Allergy status to narcotic agent
CPT/HCPCS: 99284

== ENCOUNTER → 2023-01-19 | Outpatient (CLI) | payer MEDICARE ==
--- NOTE | 2023-01-20 20:04 | MM ---
Reason for Exam: Screening (asymptomatic). Last mammogram was performed 1 year(s) and 1 month(s) ago. Patient History: Menarche at age 9. First Full-Term at age 21. Left ovary removed at age 54. Right ovary removed at age 21. Hysterectomy at age 54. Postmenopausal. Other cancer, age 62. Endometrial cancer, age 54. Patient used Hormonal Contraceptives for 2 years. Benign Cyst Aspiration on the left side. Maternal aunt had breast cancer. Risk Values: Isabella 5 year model risk: 1.7%. NCI Lifetime model risk: 2.8%. Prior Study Comparison: 10/24/2019 Bilateral Screening Mammogram, [facility]. 10/09/2020 Bilateral Screening Mammogram, [facility]. 12/17/2021 Bilateral MG 3D screening mammo w/cad, [facility]. Tissue Density: There are scattered fibroglandular densities. Findings: Analyzed By CAD. There is no suspicious group of microcalcifications or new suspicious mass in either breast. Overall Assessment: Negative, BI-RAD 1 Management: Screening Mammogram of both breasts in 1 year. . Patient should continue monthly self-breast exams. A clinical breast exam by your physician is recommended on an annual basis. This exam should not preclude additional follow-up of suspicious palpable abnormalities. Note on Isabella scores and lifetime risk: 1. A Isabella score greater than 3% is considered moderate risk. If this is the case, consider specialist referral to assess eligibility for a risk reducing agent. 2. If overall lifetime risk for the development of breast cancer is 20% or higher, the patient may qualify for future screening with alternating mammogram and breast MRI. Electronically signed and approved by: Josue Leong M.D. Radiologist
== END | disposition home or self-care (01) ==
LOC: RADMAMWWP 11:03
PROVIDERS: ATTEND Family Medicine
DX: Z12.31 Encounter for screening mammogram for malignant neoplasm of breast (principal); Z80.3 Family history of malignant neoplasm of breast; Z78.0 Asymptomatic menopausal state
CPT/HCPCS: 77063; 77067

== ENCOUNTER → 2024-02-29 | Outpatient (CLI) | payer MEDICARE ==
--- NOTE | 2024-02-29 09:22 | US ---
EXAMINATION TYPE: US gallbladder DATE OF EXAM: 02/29/2024 COMPARISON: 11/21/2019 CLINICAL INDICATION: Female, 78 years old with history of R10.13 EPIGASTRIC; Bowel color change. [place]. TECHNIQUE: Grayscale and color Doppler imaging of the right upper quadrant was performed. FINDINGS: EXAM MEASUREMENTS: Liver Length: 14.4 cm Gallbladder Wall: 0.2 cm CBD: 0.4 cm Right Kidney: 9.7 x 5.1 x 4.2 cm Pancreas: Heterogenous Liver: Previous right liver cyst not seen on todays exam. Gallbladder: No stones or wall thickening Evidence for sonographic De Leon's sign: neg CBD: wnl Right Kidney: No hydronephrosis or masses seen IMPRESSION: 1. No evidence for acute process. 2. Liver cyst seen on prior not visualized. [facility], , 02/29/2024 9:20 AM
== END | disposition home or self-care (01) ==
LOC: RADUSWWP 08:01
PROVIDERS: ATTEND Internal Medicine
DX: R10.13 Epigastric pain (principal)
CPT/HCPCS: 76705